=== PATIENT | female | born 1960 | race African-American/Black ===

== ENCOUNTER 2016-12-26 16:22 | Inpatient (IN) | payer OTHER ==
--- NOTE | ~2016-12-26 | CN ---
Consultation Report [facility] [address] [place]. [address] NAME: LISA ENGLISH : 58 STATUS : ADM William PAT#: [id number] AGE: 56 ADM/REG DATE : 12/27/16 MR#: [id number] REPORT SERV DATE: 12/27/16 DICTATED BY: CLIFF WALLER DATE: 12/27/16 REPORT STATUS : Draft TRANSCRIBED BY: MODCodi DATE: 12/27/16 DATE OF CONSULTATION: TIME: 11:55 a.m. ASSESSMENT: 1. Acute on chronic kidney disease in a patient with multiple risk factors for CKD include poorly controlled diabetes, hypertension recurrent, acute kidney injuries, now presenting with poorly controlled diabetes with hyperglycemia, glycosuria, and dehydration home. Plan is resuscitate with volume. 2. Diabetic control. 3. Serological workup. 4. Serum protein electrophoresis. 5. visitor services coordinator evaluation and we will obtain an ultrasound to obtain what her anatomy of her kidneys are as she has underlying chronic kidney disease. HISTORY: History is obtained from the patient. She is an unfortunate 56-year-old female, homeless with inability to afford medications, prior crack and alcohol addict, recently discharged from [facility] due to pancreatitis, unable to afford insulin on discharge and for about 5 days, she went [facility] where she was supplied with some insulin but now came in with increasing abdominal pain, nausea, vomiting, weakness, and malaise and blood pressure was initially 100/50, and now up into the 220s over 90s with volume resuscitation. She had abdominal pain, nausea, vomiting, and some diarrhea. Denies any history of difficulty in voiding. No history of hematuria or acute retention. No use of anti-inflammatories that she can mention and the patient is unaware of underlying chronic kidney disease. PAST MEDICAL HISTORY: 1. Includes a history of being homeless. 2. Inability to afford medications for diabetes and hypertension control. 3. Alcohol and cocaine addiction. 4. History of CKD. 5. Pancreatitis. 6. COPD. 7. Type 2 diabetes. SOCIAL HISTORY: A 13-cees-axai history of smoking. No alcohol or medication or street drug use at the present time and currently homeless. She has 4 sons, one in [place], one here in [place], and two in [place]. REVIEW OF SYSTEMS: As per the HPI. HOME MEDICATIONS: She is unable to afford but supposedly have included Atarax, hydrochlorothiazide 25, Neurontin, aspirin, Proventil, Levsin, Levemir, and lisinopril. Consultation Report [facility] [id number] [place]. [address] NAME: LISA ENGLISH : 58 STATUS : ADM William PAT#: [id number] AGE: 56 ADM/REG DATE : 12/27/16 MR#: [id number] REPORT SERV DATE: 12/27/16 DICTATED BY: CLIFF WALELR DATE: 12/27/16 REPORT STATUS : Draft TRANSCRIBED BY: MODCodi DATE: 12/27/16 REVIEW OF SYSTEMS: As per the HPI. PHYSICAL EXAMINATION: GENERAL: She is an obese female, awake, alert, and in no acute distress. VITAL SIGNS: Blood pressure is 200/100. HEENT: Pupils are reacting to light. She is pale but not jaundiced. Oral mucosa is moist. No pharyngitis. NECK: Supple. No thyromegaly. Trachea is central. Air entry is equal bilaterally. CHEST: Clear to auscultation. ABDOMEN: Upper abdomen obese. No hepatosplenomegaly. No tenderness, guarding, or rebound. Bowel sounds normal. EXTREMITIES: She has no peripheral edema. She has old scars on both legs and arms consistent with question of IV drug abuse. Muscle bulk and tone are reduced but no focal neurological deficits noted. No acute arthritic findings noted. NEUROLOGIC: She is awake, alert, and oriented to time, place, and person. [place] not depressed at this time. LAB AND IMAGING: Workup includes a CT scan of the abdomen and pelvis that shows exophytic cyst in the lower pole of the right kidney; small benign angiolipoma in lower pole right kidney. Bilateral areas of chronic cortical scarring are described. Old healed posterior rib fractures, left through 11th ribs are noted. Mild cardiomegaly. Sodium 134, potassium 3.5, chloride 99, CO2 of 26, BUN 42, creatinine 2.3, calcium is 8.2, lipase was 554, hemoglobin 11.3, hematocrit 32.2, white count 10.3, platelet count 259,000. Urinalysis showed trace protein, glycosuria and no hematuria or pyuria. ADDENDUM: We will add diltiazem for her blood pressure control at this time. MG/MODL Cliff Waller M.D. / [id number] CC: Vel Gutierrez Jr, MD
--- NOTE | ~2016-12-26 | DS ---
Discharge Summary [facility] [address] [facility] [place]. [address] NAME: LISA ENGLISH : 58 STATUS : DIS William PAT#: [id number] AGE: 56 ADM/REG DATE : 12/27/16 MR#: [id number] REPORT SERV DATE: 12/31/16 DICTATED BY: DATE: REPORT STATUS : Draft TRANSCRIBED BY: MODL DATE: 12/30/16 ADMISSION DATE: 12/27/2016 DISCHARGE DATE: 12/30/2016 DISCHARGE DIAGNOSES: 1. Diabetes mellitus, type 2, with diabetic ketoacidosis. 2. Abdominal pain. 3. Hypertension. 4. Acute kidney injury on chronic kidney disease II. 5. Nausea and vomiting. 6. Dehydration. 7. Chronic obstructive pulmonary disease. CONSULTATIONS: Nephrology, Dr. Waller. PROCEDURES AND IMAGIN. Chest x-ray on 12/26/2016 showed no acute cardiopulmonary process. CT of the abdomen and pelvis, without contrast, showed no acute abdominal or pelvic pathology. Diffusely, decompressed transverse, descending, and sigmoid colon with no underlying diverticulosis and no pericolonic inflammatory changes. Poorly defined peripheral infiltrates in both posterior lung bases with poorly defined atelectasis. 2. 12/30/2016, gastric emptying study showed marked gastroparesis with 95% of the activity remaining within the stomach at the end of 80 minutes. HOSPITAL COURSE: Please see H and P from 12/27/[address] Yifan Nesbitt. This is a 56-year- old black female who came to the ER with abdominal pain and high blood sugar. The patient states she has not taken her insulin for five days and had run out of test strips five days previously. The patient had also been admitted to [facility] and has been out for a week since her admission there with acute pancreatitis. The patient has had nausea and vomiting and acute kidney injury due to extreme dehydration from her high blood sugar. During her stay, the patient has had high blood sugars because the patient keeps getting food brought in by her family. The patient had stated she had no insurance, so we have attempted to place the patient on 70/30 insulin due to lack of insurance. When it was discovered today the patient is on [place] Medicaid, the patient also states she has been given some insulin from the homeless alf. So, the patient will be discharged on that Levemir from that homeless alf and then will be transitioned to Lantus with the Humulin. The patient's blood pressures had extremes up to 180s/90s and down to 135/64. The patient's hydrochlorothiazide has been added back in since the patient's acute kidney injury has resolved. The patient also no longer has nausea and vomiting and her dehydration has been resolved. The patient's COPD has been well controlled during her stay with nebulizer treatments. The patient does use nebulizer at home. PHYSICAL EXAMINATION: VITAL SIGNS: Blood pressure 135/64, temp is 98.1, O2 saturation is 95% on room air, pulse is 84, and respirations are 16. HEENT: Head is atraumatic, normocephalic. The patient does have bilateral upper lid ptosis, Discharge Summary [address] [address] NAME: LISA ENGLISH : 58 STATUS : DIS William PAT#: [id number] AGE: 56 ADM/REG DATE : 12/27/16 MR#: [id number] REPORT SERV DATE: 12/31/16 DICTATED BY: DATE: REPORT STATUS : Draft TRANSCRIBED BY: MODL DATE: 12/30/16 right greater than left. Pupils are equal, round, and reactive to light and accommodation. Sclerae are clear and nonicteric. The patient has poor dentition. NECK: Neck is supple with no palpable lymphadenopathy or thyromegaly. Neck veins are flat. CARDIAC: The patient is in a regular rhythm with no obvious murmurs, rubs, or gallops. LUNGS: Lung sounds are clear with normal respiratory effort. ABDOMEN: Soft and nontender with active bowel sounds in all four quadrants. Normal bowel habitus. No palpable organomegaly. Abdomen is obese. EXTREMITIES: The patient has no peripheral edema, clubbing, or cyanosis. DP/PT pulses are palpable bilaterally. MUSCULOSKELETAL: The patient moves all extremities x4. The patient is ambulatory without assistance. No difficulties with balance. SKIN: Warm and dry with normal color and turgor. NEURO/PSYCH: The patient is alert and oriented x4, pleasant and cooperative. Cranial nerves II through XII are grossly intact. DISCHARGE DIET: 1800 calorie, ADA diet. DISCHARGE MEDICATIONS: Aspirin 81 mg daily; gabapentin 400 mg daily; hydrochlorothiazide 25 mg daily; Levemir 40 units b.i.d. per prescription from the homeless alf and then transition to Lantus and Humulin as directed per MD; Atarax 25 mg at bedtime; Proventil two puffs every four hours as needed for short of breath; QVAR one puff twice daily; Levsin 0.125 mg four times a day as needed for abdominal pain; lisinopril 20 mg daily; erythromycin 250 mg p.o. t.i.d. x7 days. ALLERGIES: THE PATIENT IS ALLERGIC TO WELLBUTRIN FOR WHICH SHE GETS A RASH. THE PATIENT IS TO FOLLOW UP WITH HER PCP, TO WORK ON HER INSULIN WITHIN THE NEXT FIVE TO SEVEN DAYS. SHOULD THE PATIENT DEVELOP ANY MORE SEVERE ABDOMINAL PAIN OR EXTREME ELEVATION IN HER BLOOD SUGAR, THE PATIENT IS TO CALL HER PCP OR PRESENT TO THE ER. APPROXIMATELY 40 MINUTES HAS BEEN SPENT COORDINATING DISCHARGE CARE OF THIS PATIENT INCLUDING JPEN-XN-FCFA ENCOUNTER AND SUMMARIZATION OF THE DISCHARGE. SLC/MODL Edna Fong NP / [id number] CC: Vel Gutierrez Jr, MD
--- NOTE | ~2016-12-26 | HP ---
History And Physical [facility] [address] [facility] [place]. [address] NAME: LISA SANTOS : 58 STATUS : ADM William PAT#: [id number] AGE: 56 ADM/REG DATE : 12/27/16 MR#: [id number] REPORT SERV DATE: 12/27/16 DICTATED BY: LEE HERRERA DATE: 12/27/16 REPORT STATUS : Draft TRANSCRIBED BY: MODL DATE: 12/27/16 DATE OF ADMISSION: 12/27/2016 CHIEF COMPLAINT: Abdominal pain, feeling sick, high blood sugar. HISTORY OF PRESENT ILLNESS: This is a 56-year-old female, who presents to the emergency room at [facility] with the above-mentioned complaint. History is obtained from the patient, and reviewing data available on the [employer] system. I had also spoken with the ER physician about her. According to Ms. Santos, she was discharged from [facility] about a week or so ago after she was treated for acute pancreatitis there. She says she was discharged home but continued to have nausea and severe vomiting even after she came home. She also had the abdominal pain. Her blood sugars were high as she could not eat or drink, and finally she decided to come to the emergency room here. In the emergency room here, initial workup revealed she had hyperglycemia, metabolic acidosis, and acute kidney injury. When she arrived here, she was hypotensive as well. Her lactate was 6.7 today. Hospitalist Service is asked to admit her for further evaluation and treatment. At the time of my evaluation, she denied any chest pain, palpitations, or orthopnea. She had no cough, hemoptysis, night sweats, or weight loss. She denied any recent falls or loss of consciousness. She had no fevers or chills. She did have nausea and vomiting which was bilious and not associated with any blood in it. She had no hematemesis, hematochezia, or hematuria. No other history of recent travel or exposures other than those mentioned above. PAST MEDICAL HISTORY: Significant for history of essential hypertension, COPD, and diabetes mellitus type 2. SOCIAL HISTORY: She has about [id number] history of smoking. Denied alcohol use or recreational drug use. FAMILY HISTORY: Noncontributory. MEDICATIONS: At home were reviewed by me in the chart today and reordered by me. REVIEW OF SYSTEMS: As in history of present illness. All other systems were reviewed in detail and are quite unremarkable. PHYSICAL EXAMINATION: GENERAL: This is a pleasant 56-year-old, not in any acute distress. HEENT: Her head is atraumatic, normocephalic. She is alert, awake, oriented to time, place, and person. Her pupils are equal, reacting to light and accommodating. External ocular muscles are intact. Membranes are moist and pink. Sclerae nonicteric. History And Physical [address] [address] NAME: LISA SANTOS : 58 STATUS : ADM William PAT#: [id number] AGE: 56 ADM/REG DATE : 12/27/16 MR#: [id number] REPORT SERV DATE: 12/27/16 DICTATED BY: LEE HERRERA DATE: 12/27/16 REPORT STATUS : Draft TRANSCRIBED BY: KEV DATE: 12/27/16 NECK: Supple with no jugular venous distention, lymphadenopathy, or thyromegaly. LUNGS: Clear to auscultation with no wheezes, rubs, or crackles. HEART: Heart sounds were regular with no murmurs, rubs, or gallops. ABDOMEN: Soft, nontender. Bowel sounds are present. EXTREMITIES: Showed no cyanosis, clubbing, or edema. NEUROLOGIC: Grossly intact. No focal sensory or motor deficits. She was able to move all four extremities. Gait was not examined at this time. VITAL SIGNS: Her vital signs today showed a temperature of 97.7, pulse 96, respirations 23 a minute, blood pressure was 100/50, oxygen saturations were 95% on 2 L via nasal cannula. LABORATORY DATA: Reviewed on the [employer] system showed arterial blood gas with a pH of 7.40, pCO2 was 33, PO2 129, and bicarb was 20. This was on 2 L via nasal cannula. CMP showed a sodium of 131, potassium 4.3, chloride 91, CO2 of 20, BUN was 40 with a creatinine of 3.05, and the last one on 09/10/2016 was 1.09. Her blood glucose was 387 when she arrived here. Her lipase was not done today. Her lactate was 6.7. [place] [address], hemoglobin was 13.2, hematocrit 36.5, and platelet count was 330,000. Urinalysis was grossly unremarkable today. Films of the CT scan of the abdomen and pelvis were reviewed by me on the PACS today and interpreted by me. There were no acute intraabdominal or pelvic pathology according to the radiology report. Please see the report for details. A 12-lead EKG done in the emergency room was reviewed and interpreted by me. Per my interpretation, there is normal sinus rhythm with a rate of [address] changes. IMPRESSION: 1. Nausea and vomiting. 2. Abdominal pain. 3. Recent pancreatitis. 4. Hyperglycemia, possibly hyperosmolar hyperglycemic state. 5. Hypotension. 6. Acute kidney injury. 7. Metabolic acidosis. 8. Essential hypertension. 9. Chronic obstructive pulmonary disease. 10.Medication noncompliance. PLAN: We will admit Ms. Santos to the Hospitalist Service with telemetry for a 24-hour observation. She responded well to fluid challenge and volume replacement. Blood pressures had come up to 153/81. We will continue aggressive volume replacement. Follow chemistry and renal function in the morning. We will go ahead and consult Nephrology to see her as well. We will also place her on insulin infusion per protocol as well. Her hypotension has resolved as mentioned above. We will continue the fluids. Place her on bronchodilator treatments and supplemental oxygen therapy for her COPD and also unfractionated heparin for DVT prophylaxis while here. I have discussed the above plans with the patient and questions were answered. She is History And Physical [address] [address] NAME: LISA SANTOS : 58 STATUS : ADM William PAT#: [id number] AGE: 56 ADM/REG DATE : 12/27/16 MR#: [id number] REPORT SERV DATE: 12/27/16 DICTATED BY: LEE HERRERA DATE: 12/27/16 REPORT STATUS : Draft TRANSCRIBED BY: MODCodi DATE: 12/27/16 agreeable to the above recommendations. /KEV Lee Herrera M.D. / [id number] CC: Vel Gutierrez Jr, MD
[~2016-12-26 16:22] MED LIST: ADVIL PO; ALBUTEROL INH; AMITIZA8 MCG PO; BENTYL10 PO; DELTADOSE; ENULOSE PO; FERROUS SULF325 M1 PO; FOLAMIN PO; HUMALOG SC; LANTUS SC; LINZESS 290 M290 MCG PO; LISINOPRIL-HCTZ PO; METHOC750B PO; NOVOLOG SC; PEPCID40 MG OR; PRILOSEC40 MG PO; PROAIR HFA INH; PROZAC40 MG PO; RANITIDINE300 MG PO; SEROQUEL300 MG PO; TRAVATAN Z0.004 % OPH; TRAZODONE150 MG PO; TRAZODONE300 MG PO; ZESTORETIC PO; ZESTORETIC1 TA1 PO; ZESTORETIC1 TAB PO
[2016-12-26 17:17] LABS: BASOPHILS 0.2 %; BASOPHILS ABSOLUTE 0.03 10/3/uL (0.0-0.16); EOSINOPHILS 0.9 %; EOSINOPHILS ABSOLUTE 0.11 10/3/uL (0.0-0.53); ER CBC TAT 0 Hrs 05 Mins; HEMATOCRIT 36.5 % (36.0-48.0); HEMOGLOBIN 13.2 g/dL (12.0-16.0); IMMATURE GRANULOCYTES 0.3 %; IMMATURE GRANULOCYTES ABSOLUTE 0.04 10/3/uL (0.0-0.11); LYMPHOCYTES 18.8 %; LYMPHOCYTES ABSOLUTE 2.34 10/3/uL (0.67-4.30); MANUAL DIFF NO %; MEAN CORPUS HGB CONC 36.2 g/dL (32.0-36.0); MEAN CORPUSCULAR HEMOGLOB 26.9 pg (26.0-34.0); MEAN CORPUSCULAR VOLUME 74.5 fL (80-100); MEAN PLATELET VOLUME 9.5 fL (9.2-13.0); MONOCYTES 6.3 %; MONOCYTES ABSOLUTE 0.78 10/3/uL (0.21-1.20); NEUTROPHILS 73.5 %; NEUTROPHILS ABSOLUTE 9.17 10/3/uL (2.02-8.40); PLATELET COUNT 330 10/3/uL (150-400); RBC DISTRIBUTION WIDTH 13.9 % (12.0-16.0); WHITE BLOOD CELLS 12.5 10/3/uL (4.5-10.5)
[2016-12-26 17:28] LABS: ACETONE NEG
[2016-12-26 17:32] LABS: ALBUMIN 3.7 G/DL (3.5-5.0); CO2 (CARBON DIOXIDE) 20 MMOL/L (24-34); POTASSIUM, SERUM 4.3 MMOL/L (3.5-5.3); SGOT(AST) 7 U/L (5-40); SGPT(ALT) 25 U/L (5-65); TOTAL BILIRUBIN 0.3 MG/DL (0-1.2)
[2016-12-26 17:34] LABS: A/G RATIO 0.7 (0.7-1.9); ALKALINE PHOSPHATASE 206 U/L (45-117); BUN (BLOOD UREA NITROGEN) 40 MG/DL (6-23); CALCIUM, SERUM 10.6 MG/DL (8.5-10.4); CHLORIDE, SERUM 91 MMOL/L (96-112); CREATININE 3.05 MG/DL (0.55-1.02); GFR AFRICAN AMERICAN 19 ML/MIN (>=60); GFR NON AFRICAN AMERICAN 16 ML/MIN (>=60); GLOBULIN 5.6 G/DL (2.5-4.1); GLUCOSE, SERUM 387 MG/DL (60-99); SODIUM, SERUM 131 MMOL/L (135-148); TOTAL PROTEIN 9.3 G/DL (6.0-8.5)
[2016-12-26] MEDS ORDERED: QVAR80 MCG INH (17:46)
[2016-12-26] MEDS ORDERED: PROVHFA INH (17:46)
[2016-12-26] MEDS ORDERED: HYDROCHLOROT25 MG PO (17:46)
[2016-12-26] MEDS ORDERED: LEVSINTAB PO (17:47)
[2016-12-26] MEDS ORDERED: AT25 PO (17:47)
[2016-12-26 17:48] LABS: ALLENS TEST Pos; CARBOXYHEMOGLOBIN 2.4 % (0-3); DEVICE NC; HEMOBLOGIN CONTENT 13.3 G/DL (12-16); INSTRUMENT SERIAL # 8087; METHEMOGLOBIN 0.1 % (0-3); O2 CONTENT 18.2 VOL% (18-24); PCO2 (CO2 TENSION) 33 MMHG (35-45); PO2 (O2 TENSION) 129 MMHG (79-93); SAMPLE Arterial
[2016-12-26] MEDS ORDERED: ASAB PO (17:48)
[2016-12-26] MEDS ORDERED: NEUR400 PO (17:48)
[2016-12-26] MEDS ORDERED: PRIN20 PO (17:48)
[2016-12-26] MEDS ORDERED: LEVEMIR SC (17:49)
[2016-12-26 18:21] LABS: CPK 100 U/L (0-200); LACTATE 6.7 MMOL/L (0.3-2.4); TROPONIN I <0.02 NG/ML (<0.05)
[2016-12-26 18:31] LABS: WBC (NOT ORDERED) (RFLEX) 0 (0-5)
[2016-12-26 18:44] LABS: ASCORBIC ACID (UR NOT ORDER) NEG (NEG); BILIRUBIN, URINE NEGATIVE (NEG); ER URINALYSIS TAT 0 Hrs 14 Mins; KETONE, URINE TRACE MG/DL (NEG); LEUKOCYTE ESTERASE(NOT OR NEG (NEG); NITRITE (URINE) NEG (NEG)
[2016-12-26 18:49] LABS: PROCALCITONIN 0.37 ng/mL (<0.5)
[2016-12-26 22:52] LABS: SALICYLATE 2.2 MG/DL (-)
[2016-12-26 22:53] LABS: ACETAMINOPHEN LEVEL (TYLENOL) < 2.0 MCG/ML (10.0-20.0); ALCOHOL < 10 MG/DL (0)
[2016-12-26 22:57] LABS: AMPHETAMINES (NOT ORD) NEG (NEG); BARBITURATES (NOT ORDERED NEG (NEG); BENZODIAZEPINES (NOT ORD) NEG (NEG); CANNABINOIDS (THC) NEG (NEG); COCAINE (NOT ORDERED) NEG (NEG); OPIATES NEG (NEG); PHENCYCLIDINE(PCP) NEG (NEG); TRICYCLICS NEG (NEG)
[2016-12-27 04:10] LABS: BASOPHILS 0.2 %; BASOPHILS ABSOLUTE 0.02 10/3/uL (0.0-0.16); EOSINOPHILS 1.5 %; EOSINOPHILS ABSOLUTE 0.15 10/3/uL (0.0-0.53); HEMOGLOBIN 11.3 g/dL (12.0-16.0); IMMATURE GRANULOCYTES 0.4 %; IMMATURE GRANULOCYTES ABSOLUTE 0.04 10/3/uL (0.0-0.11); LYMPHOCYTES 19.6 %; LYMPHOCYTES ABSOLUTE 2.02 10/3/uL (0.67-4.30); MEAN CORPUS HGB CONC 35.1 g/dL (32.0-36.0); MEAN CORPUSCULAR HEMOGLOB 26.7 pg (26.0-34.0); MEAN CORPUSCULAR VOLUME 75.9 fL (80-100); MEAN PLATELET VOLUME 9.8 fL (9.2-13.0); MONOCYTES 7.5 %; MONOCYTES ABSOLUTE 0.77 10/3/uL (0.21-1.20); NEUTROPHILS 70.8 %; NEUTROPHILS ABSOLUTE 7.32 10/3/uL (2.02-8.40); PLATELET COUNT 259 10/3/uL (150-400); RBC DISTRIBUTION WIDTH 14.3 % (12.0-16.0); RED CELL COUNT 4.24 10/6/uL (4.0-5.6); WHITE BLOOD CELLS 10.3 10/3/uL (4.5-10.5)
[2016-12-27 04:11] LABS: HEMATOCRIT 32.2 % (36.0-48.0); MANUAL DIFF NO %
[2016-12-27 04:31] LABS: A/G RATIO 0.7 (0.7-1.9); ALBUMIN 3.1 G/DL (3.5-5.0); BUN (BLOOD UREA NITROGEN) 41 MG/DL (6-23); CHLORIDE, SERUM 97 MMOL/L (96-112); CO2 (CARBON DIOXIDE) 24 MMOL/L (24-34); GLOBULIN 4.6 G/DL (2.5-4.1); PHOSPHORUS, SERUM 3.8 MG/DL (2.5-4.5); SGPT(ALT) 35 U/L (5-65); SODIUM, SERUM 135 MMOL/L (135-148); TOTAL BILIRUBIN 0.4 MG/DL (0-1.2); TOTAL PROTEIN 7.7 G/DL (6.0-8.5)
[2016-12-27 04:34] LABS: ALKALINE PHOSPHATASE 162 U/L (45-117); CALCIUM, SERUM 8.6 MG/DL (8.5-10.4); CREATININE 2.42 MG/DL (0.55-1.02); GFR AFRICAN AMERICAN 25 ML/MIN (>=60); GFR NON AFRICAN AMERICAN 21 ML/MIN (>=60); GLUCOSE, SERUM 140 MG/DL (60-99); POTASSIUM, SERUM 3.9 MMOL/L (3.5-5.3); SGOT(AST) 212 U/L (5-40)
[2016-12-27 11:11] LABS: BUN (BLOOD UREA NITROGEN) 42 MG/DL (6-23); CALCIUM, SERUM 8.2 MG/DL (8.5-10.4); CHLORIDE, SERUM 99 MMOL/L (96-112); CO2 (CARBON DIOXIDE) 26 MMOL/L (24-34); GFR AFRICAN AMERICAN 26 ML/MIN (>=60); GFR NON AFRICAN AMERICAN 23 ML/MIN (>=60); POTASSIUM, SERUM 3.5 MMOL/L (3.5-5.3); SODIUM, SERUM 134 MMOL/L (135-148)
[2016-12-27 11:13] LABS: GLUCOSE, SERUM 224 MG/DL (60-99)
[2016-12-27 16:25] LABS: BUN (BLOOD UREA NITROGEN) 41 MG/DL (6-23); CALCIUM, SERUM 8.3 MG/DL (8.5-10.4); CHLORIDE, SERUM 100 MMOL/L (96-112); CO2 (CARBON DIOXIDE) 24 MMOL/L (24-34); CREATININE 2.22 MG/DL (0.55-1.02); GFR AFRICAN AMERICAN 28 ML/MIN (>=60); GFR NON AFRICAN AMERICAN 24 ML/MIN (>=60); GLUCOSE, SERUM 282 MG/DL (60-99); POTASSIUM, SERUM 3.8 MMOL/L (3.5-5.3); SODIUM, SERUM 136 MMOL/L (135-148)
[2016-12-27 16:26] LABS: T PROTEIN (ELECT)(NOT OR 6.8 G/DL (6.0-8.5)
[2016-12-27 22:15] LABS: BUN (BLOOD UREA NITROGEN) 39 MG/DL (6-23); CALCIUM, SERUM 8.2 MG/DL (8.5-10.4); CHLORIDE, SERUM 103 MMOL/L (96-112); CO2 (CARBON DIOXIDE) 24 MMOL/L (24-34); CREATININE 2.12 MG/DL (0.55-1.02); GFR AFRICAN AMERICAN 29 ML/MIN (>=60); GFR NON AFRICAN AMERICAN 25 ML/MIN (>=60); GLUCOSE, SERUM 276 MG/DL (60-99); POTASSIUM, SERUM 3.7 MMOL/L (3.5-5.3); SODIUM, SERUM 137 MMOL/L (135-148)
[2016-12-28 01:36] LABS: CALCIUM, SERUM 8.1 MG/DL (8.5-10.4); CHLORIDE, SERUM 105 MMOL/L (96-112); CO2 (CARBON DIOXIDE) 24 MMOL/L (24-34); CREATININE 1.84 MG/DL (0.55-1.02); GFR AFRICAN AMERICAN 35 ML/MIN (>=60); GFR NON AFRICAN AMERICAN 30 ML/MIN (>=60); POTASSIUM, SERUM 3.6 MMOL/L (3.5-5.3); SODIUM, SERUM 141 MMOL/L (135-148)
[2016-12-28 01:37] LABS: BUN (BLOOD UREA NITROGEN) 35 MG/DL (6-23); GLUCOSE, SERUM 212 MG/DL (60-99)
[2016-12-28 04:40] LABS: BASOPHILS 0.4 %; BASOPHILS ABSOLUTE 0.02 10/3/uL (0.0-0.16); EOSINOPHILS 2.9 %; EOSINOPHILS ABSOLUTE 0.16 10/3/uL (0.0-0.53); HEMATOCRIT 30.3 % (36.0-48.0); HEMOGLOBIN 10.2 g/dL (12.0-16.0); LYMPHOCYTES 21.4 %; MEAN CORPUS HGB CONC 33.7 g/dL (32.0-36.0); MEAN CORPUSCULAR HEMOGLOB 26.2 pg (26.0-34.0); MEAN CORPUSCULAR VOLUME 77.7 fL (80-100); MEAN PLATELET VOLUME 10.4 fL (9.2-13.0); MONOCYTES ABSOLUTE 0.28 10/3/uL (0.21-1.20); NEUTROPHILS 70.3 %; NEUTROPHILS ABSOLUTE 3.94 10/3/uL (2.02-8.40); RBC DISTRIBUTION WIDTH 14.3 % (12.0-16.0)
[2016-12-28 04:42] LABS: PLATELET COUNT 152 10/3/uL (150-400); WHITE BLOOD CELLS 5.6 10/3/uL (4.5-10.5)
[2016-12-28 04:43] LABS: MANUAL DIFF NO %
[2016-12-28 04:44] LABS: PROTIME (NOT ORD) 12.9 SEC (12.0-14.5)
[2016-12-28 04:59] LABS: ALBUMIN 2.7 G/DL (3.5-5.0); ALKALINE PHOSPHATASE 153 U/L (45-117); BUN (BLOOD UREA NITROGEN) 33 MG/DL (6-23); CALCIUM, SERUM 8.2 MG/DL (8.5-10.4); CHLORIDE, SERUM 106 MMOL/L (96-112); CO2 (CARBON DIOXIDE) 22 MMOL/L (24-34); CREATININE 1.74 MG/DL (0.55-1.02); GFR AFRICAN AMERICAN 37 ML/MIN (>=60); GFR NON AFRICAN AMERICAN 32 ML/MIN (>=60); GLUCOSE, SERUM 201 MG/DL (60-99); PLATELET ESTIMATE ADQ (ADEQUATE); RBC MORPHOLOGY NORM (NORMAL); SGOT(AST) 369 U/L (5-40); SGPT(ALT) 65 U/L (5-65); SODIUM, SERUM 139 MMOL/L (135-148); TOTAL BILIRUBIN 0.5 MG/DL (0-1.2); TOTAL PROTEIN 6.9 G/DL (6.0-8.5)
[2016-12-28 05:01] LABS: DIRECT BILIRUBIN < 0.1 MG/DL (0.0-0.4); INDIRECT BILIRUBIN(NOT ORDER) 0.4 MG/DL (0.1-0.9); PHOSPHORUS, SERUM 2.4 MG/DL (2.5-4.5)
[2016-12-28 06:56] LABS: ASCORBIC ACID (UR NOT ORDER) NEG (NEG); BILIRUBIN, URINE NEGATIVE (NEG); KETONE, URINE NEGATIVE (NEG); LEUKOCYTE ESTERASE(NOT OR NEG (NEG); WBC (NOT ORDERED) (RFLEX) 3 (0-5)
[2016-12-28 08:34] LABS: BUN (BLOOD UREA NITROGEN) 31 MG/DL (6-23); CALCIUM, SERUM 8.1 MG/DL (8.5-10.4); CHLORIDE, SERUM 109 MMOL/L (96-112); CO2 (CARBON DIOXIDE) 23 MMOL/L (24-34); GFR AFRICAN AMERICAN 38 ML/MIN (>=60); GFR NON AFRICAN AMERICAN 33 ML/MIN (>=60); GLUCOSE, SERUM 164 MG/DL (60-99); POTASSIUM, SERUM 3.9 MMOL/L (3.5-5.3); SODIUM, SERUM 143 MMOL/L (135-148)
[2016-12-29 06:53] LABS: BASOPHILS 0.3 %; BASOPHILS ABSOLUTE 0.02 10/3/uL (0.0-0.16); EOSINOPHILS 3.4 %; HEMATOCRIT 29.3 % (36.0-48.0); IMMATURE GRANULOCYTES 0.2 %; IMMATURE GRANULOCYTES ABSOLUTE 0.01 10/3/uL (0.0-0.11); LYMPHOCYTES ABSOLUTE 1.53 10/3/uL (0.67-4.30); MEAN CORPUS HGB CONC 34.1 g/dL (32.0-36.0); MEAN CORPUSCULAR VOLUME 79.2 fL (80-100); MEAN PLATELET VOLUME 9.5 fL (9.2-13.0); MONOCYTES 5.1 %; NEUTROPHILS ABSOLUTE 3.82 10/3/uL (2.02-8.40); RBC DISTRIBUTION WIDTH 14.3 % (12.0-16.0); WHITE BLOOD CELLS 5.9 10/3/uL (4.5-10.5)
[2016-12-29 07:00] LABS: MANUAL DIFF NO %; PLATELET COUNT 220 10/3/uL (150-400)
[2016-12-29 07:09] LABS: ALBUMIN 2.7 G/DL (3.5-5.0); CHLORIDE, SERUM 111 MMOL/L (96-112); CO2 (CARBON DIOXIDE) 21 MMOL/L (24-34); CREATININE 1.41 MG/DL (0.55-1.02); GFR AFRICAN AMERICAN 48 ML/MIN (>=60); GFR NON AFRICAN AMERICAN 41 ML/MIN (>=60); PHOSPHORUS, SERUM 1.8 MG/DL (2.5-4.5); POTASSIUM, SERUM 4.2 MMOL/L (3.5-5.3); SGOT(AST) 193 U/L (5-40); SODIUM, SERUM 140 MMOL/L (135-148)
[2016-12-29 07:12] LABS: BUN (BLOOD UREA NITROGEN) 20 MG/DL (6-23); GLUCOSE, SERUM 290 MG/DL (60-99)
[2016-12-29 10:32] LABS: BUN (BLOOD UREA NITROGEN) 17 MG/DL (6-23); CALCIUM, SERUM 8.5 MG/DL (8.5-10.4); CHLORIDE, SERUM 113 MMOL/L (96-112); CO2 (CARBON DIOXIDE) 21 MMOL/L (24-34); CREATININE 1.35 MG/DL (0.55-1.02); GFR AFRICAN AMERICAN 50 ML/MIN (>=60); GFR NON AFRICAN AMERICAN 43 ML/MIN (>=60); GLUCOSE, SERUM 243 MG/DL (60-99); POTASSIUM, SERUM 3.7 MMOL/L (3.5-5.3); SODIUM, SERUM 145 MMOL/L (135-148)
[2016-12-29 15:37] LABS: BUN (BLOOD UREA NITROGEN) 20 MG/DL (6-23); CALCIUM, SERUM 8.3 MG/DL (8.5-10.4); CHLORIDE, SERUM 110 MMOL/L (96-112); CO2 (CARBON DIOXIDE) 23 MMOL/L (24-34); CREATININE 1.41 MG/DL (0.55-1.02); GFR AFRICAN AMERICAN 48 ML/MIN (>=60); GFR NON AFRICAN AMERICAN 41 ML/MIN (>=60); GLUCOSE, SERUM 128 MG/DL (60-99); SODIUM, SERUM 143 MMOL/L (135-148)
[2016-12-29 19:30] LABS: BUN (BLOOD UREA NITROGEN) 19 MG/DL (6-23); CALCIUM, SERUM 8.5 MG/DL (8.5-10.4); CHLORIDE, SERUM 109 MMOL/L (96-112); CO2 (CARBON DIOXIDE) 22 MMOL/L (24-34); GFR AFRICAN AMERICAN 58 ML/MIN (>=60); GFR NON AFRICAN AMERICAN 50 ML/MIN (>=60); POTASSIUM, SERUM 3.9 MMOL/L (3.5-5.3); SODIUM, SERUM 142 MMOL/L (135-148)
[2016-12-29 19:35] LABS: GLUCOSE, SERUM 208 MG/DL (60-99)
[2016-12-30 10:37] LABS: HEPATITIS B CORE AB IGM NON-REACTIVE (NON-REAC); HEPATITIS C ANTIBODY NON-REACTIVE (NON-REACT)
[2016-12-30 10:38] LABS: HIV COMBO NON-REACTIVE (NON REAC)
[2016-12-30 11:58] LABS: HEPATITIS B SURFACE ANTIGEN NON-REACTIVE (NON-REACT)
[2016-12-30 12:25] LABS: HEP A ANTIBODY IGM NON-REACTIVE (NON-REACT)
[2016-12-30 12:42] LABS: A/G 0.88 RATIO (0.9-2.10); ALB RELATIVE % 46.8 % (60.0-89.0); ALBUMIN (ELECTRO) 3.18 GM/DL (3.2-5.5); ALPHA 1 (ELECTRO) 0.24 GM/DL (0.1-0.4); ALPHA 1 RELAT % (NOT ORD) 3.5 % (1.0-4.0); ALPHA 2 (ELECTRO) 0.99 GM/DL (0.5-1.10); ALPHA 2 RELAT % 14.5 % (4.5-26.0); BETA RELATIVE % 17.6 % (9.0-22.0); GAMMA RELAT % 17.6 % (6.0-22.0)
[2016-12-30] MEDS ORDERED: ERY-TAB250 MG PO (17:03)
[2016-12-30] MEDS ORDERED: LANTUS SC (17:05)
[2016-12-30] MEDS ORDERED: LEVEMIR SC (17:06)
[2016-12-30] MEDS ORDERED: HUMALOG SC (17:15)
[2017-05-01] MEDS ORDERED: *UNABLE1 (23:32)
[2017-05-02] MEDS ORDERED: LEVEMIR SC (11:02)
[2017-05-02] MEDS ORDERED: PRIN10 PO (11:02)
[2017-05-02] MEDS ORDERED: HUMALOG SC (11:02)
[2017-05-02] MEDS ORDERED: QVAR80 MCG INH (11:03)
[2017-05-02] MEDS ORDERED: NEUR400 PO (11:03)
[2017-05-02] MEDS ORDERED: PROVHFA INH (11:03)
[2017-05-02] MEDS ORDERED: MEVACOR10 MG PO (11:03)
[2017-05-02] MEDS ORDERED: LOP50 PO (11:04)
[2017-05-02] MEDS ORDERED: ANASPAZ0.125 MG PO (11:04)
[2017-05-02] MEDS ORDERED: NORV10 PO (11:04)
[2017-05-02] MEDS ORDERED: PRILOSEC40 MG PO (11:04)
[2017-05-03] MEDS ORDERED: NORV10 PO (15:07)
[2017-05-03] MEDS ORDERED: QVAR80 MCG INH (15:11)
[2017-05-03] MEDS ORDERED: PROVHFA INH (15:12)
[2017-05-03] MEDS ORDERED: PRIN10 PO (15:12)
[2017-05-03] MEDS ORDERED: MEVACOR10 MG PO (15:12)
[2017-05-03] MEDS ORDERED: NEUR400 PO (15:13)
[2017-05-03] MEDS ORDERED: LOP50 PO (15:13)
[2017-05-03] MEDS ORDERED: LEVSINTAB PO (15:14)
[2017-05-03] MEDS ORDERED: PRILOSEC40 MG PO (15:14)
[2017-05-03] MEDS ORDERED: LEVEMIR SC (15:15)
[2017-05-03] MEDS ORDERED: HUMALOG SC ×2 (15:15→15:16)
[2017-05-04] MEDS ORDERED: HALF81 PO (10:14)
[2017-05-04] MEDS ORDERED: NOVOLOG SC (10:15)
[2017-05-04] MEDS ORDERED: PRIN20 PO (10:15)
[2017-05-04] MEDS ORDERED: LOP25 PO (10:16)
[2017-05-04] MEDS ORDERED: CREON PO (10:27)
[2017-05-04] MEDS ORDERED: HABIT14 TOP (10:33)
[2017-05-04] MEDS ORDERED: LEVEMIR SC (10:33)
[2017-05-04] MEDS ORDERED: NORCO1 TA1 PO (14:29)
[2017-06-25] MEDS ORDERED: LEVEMFLXPN SC (16:41)
[2017-06-25] MEDS ORDERED: LEVEMIR SC (16:42)
[2017-06-25] MEDS ORDERED: HUMALOG SC (16:43)
[2017-06-25] MEDS ORDERED: Z300 PO (16:43)
[2017-06-25] MEDS ORDERED: PRILOSEC40 MG PO (16:45)
[2017-06-25] MEDS ORDERED: CREON PO (16:46)
[2017-06-25] MEDS ORDERED: LOP25 PO (16:46)
[2017-06-25] MEDS ORDERED: PRIN20 PO (16:46)
[2017-06-25] MEDS ORDERED: NEUR400 PO (16:47)
[2017-06-25] MEDS ORDERED: PROVHFA INH (16:47)
[2017-06-25] MEDS ORDERED: QVAR80 MCG INH (16:48)
[2017-06-25] MEDS ORDERED: ASAB PO (16:48)
[2017-06-25] MEDS ORDERED: VITAMIN D PO (16:50)
[2017-06-25] MEDS ORDERED: MAXIMUM D3 PO (16:50)
== END 2016-12-30 18:14 | disposition home or self-care (01) | DRG 682 ==
LOC: ER 16:22 → CDU1 12-27 00:25 → CDU2 12-27 00:53 → 1SO 12-28 10:52
PROVIDERS: Emergency Medicine; Internal Medicine; Internal Medicine Nephrology; Neurological Surgery
PROC: 06HM33Z Insertion of Infusion Device into Right Femoral Vein, Percutaneous Approach (ICD-10-PCS; principal; 2016-12-27)
DX: N17.9 Acute kidney failure, unspecified (principal); E13.10 Other specified diabetes mellitus with ketoacidosis without coma; E87.2 Acidosis; Z68.42 Body mass index [BMI] 45.0-49.9, adult; E11.22 Type 2 diabetes mellitus with diabetic chronic kidney disease; J44.9 Chronic obstructive pulmonary disease, unspecified; I12.9 Hypertensive chronic kidney disease with stage 1 through stage 4 chronic kidney disease, or unspecified chronic kidney disease; N18.2 Chronic kidney disease, stage 2 (mild); E66.01 Morbid (severe) obesity due to excess calories; F10.21 Alcohol dependence, in remission; F14.21 Cocaine dependence, in remission; Z79.4 Long term (current) use of insulin; Z91.14 Patient's other noncompliance with medication regimen; F17.210 Nicotine dependence, cigarettes, uncomplicated; Z88.8 Allergy status to other drugs, medicaments and biological substances; Z59.0 Homelessness
CPT/HCPCS: 36600; 71010; 74176; 78264; 80048; 80053; 80069; 80074; 80076; 80305; 80307; 81001; 82009; 82150; 82550; 82805; 82962; 83605; 83690; 83735; 84100; 84145; 84155; 84165; 84450; 84484; 85025; 85610; 86592; 87040; 87070; 87389; 93005; 94640; 96365; 96366; 96375; 96523; 99291; A9270-GY; A9541; G0463; J0360; J1170; J2405; J3370

== ENCOUNTER 2017-02-04 19:50 | Emergency (ER) | payer BC ==
[2017-02-04 16:38] LABS: BASOPHILS 0.2 %; BASOPHILS ABSOLUTE 0.02 10/3/uL (0.0-0.16); EOSINOPHILS 2.9 %; EOSINOPHILS ABSOLUTE 0.23 10/3/uL (0.0-0.53); HEMATOCRIT 30.4 % (36.0-48.0); HEMOGLOBIN 10.5 g/dL (12.0-16.0); IMMATURE GRANULOCYTES 0.4 %; IMMATURE GRANULOCYTES ABSOLUTE 0.03 10/3/uL (0.0-0.11); LYMPHOCYTES 35.3 %; LYMPHOCYTES ABSOLUTE 2.84 10/3/uL (0.67-4.30); MEAN CORPUS HGB CONC 34.5 g/dL (32.0-36.0); MEAN CORPUSCULAR HEMOGLOB 26.9 pg (26.0-34.0); MEAN CORPUSCULAR VOLUME 77.7 fL (80-100); MONOCYTES 3.6 %; MONOCYTES ABSOLUTE 0.29 10/3/uL (0.21-1.20); NEUTROPHILS 57.6 %; NEUTROPHILS ABSOLUTE 4.64 10/3/uL (2.02-8.40); PLATELET COUNT 267 10/3/uL (150-400); RBC DISTRIBUTION WIDTH 13.8 % (12.0-16.0); RED CELL COUNT 3.91 10/6/uL (4.0-5.6); WHITE BLOOD CELLS 8.1 10/3/uL (4.5-10.5)
[2017-02-04 16:41] LABS: MANUAL DIFF NO %
[2017-02-04 16:52] LABS: CALCIUM, SERUM 9.1 MG/DL (8.5-10.4); CO2 (CARBON DIOXIDE) 22 MMOL/L (24-34); POTASSIUM, SERUM 3.7 MMOL/L (3.5-5.3); SGOT(AST) 5 U/L (5-40); SGPT(ALT) 17 U/L (5-65); TOTAL BILIRUBIN 0.2 MG/DL (0-1.2); TOTAL PROTEIN 7.1 G/DL (6.0-8.5)
[2017-02-04 16:58] LABS: A/G RATIO 0.9 (0.7-1.9); ALBUMIN 3.3 G/DL (3.5-5.0); ALKALINE PHOSPHATASE 191 U/L (45-117); BUN (BLOOD UREA NITROGEN) 26 MG/DL (6-23); CHLORIDE, SERUM 97 MMOL/L (96-112); CREATININE 1.89 MG/DL (0.55-1.02); GFR AFRICAN AMERICAN 34 ML/MIN (>=60); GFR NON AFRICAN AMERICAN 29 ML/MIN (>=60); GLOBULIN 3.8 G/DL (2.5-4.1); GLUCOSE, SERUM 474 MG/DL (60-99); SODIUM, SERUM 132 MMOL/L (135-148)
[~2017-02-04 19:50] MED LIST changes: +ASAB PO; +AT25 PO; +ERY-TAB250 MG PO; +HYDROCHLOROT25 MG PO; +LEVEMIR SC; +LEVSINTAB PO; +NEUR400 PO; +PRIN20 PO; +PROVHFA INH; +QVAR80 MCG INH
[2017-02-04 20:15] LABS: WBC (NOT ORDERED) (RFLEX) 0 (0-5)
[2017-02-04 20:25] LABS: ASCORBIC ACID (UR NOT ORDER) NEG (NEG); BILIRUBIN, URINE NEGATIVE (NEG); ER URINALYSIS TAT 0 Hrs 13 Mins; KETONE, URINE NEGATIVE (NEG); LEUKOCYTE ESTERASE(NOT OR NEG (NEG); NITRITE (URINE) NEG (NEG)
[2017-05-01] MEDS ORDERED: *UNABLE1 (23:32)
[2017-05-02] MEDS ORDERED: HUMALOG SC (11:02)
[2017-05-02] MEDS ORDERED: PRIN10 PO (11:02)
[2017-05-02] MEDS ORDERED: LEVEMIR SC (11:02)
[2017-05-02] MEDS ORDERED: NEUR400 PO (11:03)
[2017-05-02] MEDS ORDERED: QVAR80 MCG INH (11:03)
[2017-05-02] MEDS ORDERED: PROVHFA INH (11:03)
[2017-05-02] MEDS ORDERED: MEVACOR10 MG PO (11:03)
[2017-05-02] MEDS ORDERED: LOP50 PO (11:04)
[2017-05-02] MEDS ORDERED: ANASPAZ0.125 MG PO (11:04)
[2017-05-02] MEDS ORDERED: PRILOSEC40 MG PO (11:04)
[2017-05-02] MEDS ORDERED: NORV10 PO (11:04)
[2017-05-03] MEDS ORDERED: NORV10 PO (15:07)
[2017-05-03] MEDS ORDERED: QVAR80 MCG INH (15:11)
[2017-05-03] MEDS ORDERED: MEVACOR10 MG PO (15:12)
[2017-05-03] MEDS ORDERED: PRIN10 PO (15:12)
[2017-05-03] MEDS ORDERED: PROVHFA INH (15:12)
[2017-05-03] MEDS ORDERED: LOP50 PO (15:13)
[2017-05-03] MEDS ORDERED: NEUR400 PO (15:13)
[2017-05-03] MEDS ORDERED: PRILOSEC40 MG PO (15:14)
[2017-05-03] MEDS ORDERED: LEVSINTAB PO (15:14)
[2017-05-03] MEDS ORDERED: HUMALOG SC ×2 (15:15→15:16)
[2017-05-03] MEDS ORDERED: LEVEMIR SC (15:15)
[2017-05-04] MEDS ORDERED: HALF81 PO (10:14)
[2017-05-04] MEDS ORDERED: NOVOLOG SC (10:15)
[2017-05-04] MEDS ORDERED: PRIN20 PO (10:15)
[2017-05-04] MEDS ORDERED: LOP25 PO (10:16)
[2017-05-04] MEDS ORDERED: CREON PO (10:27)
[2017-05-04] MEDS ORDERED: LEVEMIR SC (10:33)
[2017-05-04] MEDS ORDERED: HABIT14 TOP (10:33)
[2017-05-04] MEDS ORDERED: NORCO1 TA1 PO (14:29)
[2017-06-25] MEDS ORDERED: LEVEMFLXPN SC (16:41)
[2017-06-25] MEDS ORDERED: LEVEMIR SC (16:42)
[2017-06-25] MEDS ORDERED: Z300 PO (16:43)
[2017-06-25] MEDS ORDERED: HUMALOG SC (16:43)
[2017-06-25] MEDS ORDERED: PRILOSEC40 MG PO (16:45)
[2017-06-25] MEDS ORDERED: PRIN20 PO (16:46)
[2017-06-25] MEDS ORDERED: LOP25 PO (16:46)
[2017-06-25] MEDS ORDERED: CREON PO (16:46)
[2017-06-25] MEDS ORDERED: NEUR400 PO (16:47)
[2017-06-25] MEDS ORDERED: PROVHFA INH (16:47)
[2017-06-25] MEDS ORDERED: QVAR80 MCG INH (16:48)
[2017-06-25] MEDS ORDERED: ASAB PO (16:48)
[2017-06-25] MEDS ORDERED: VITAMIN D PO (16:50)
[2017-06-25] MEDS ORDERED: MAXIMUM D3 PO (16:50)
== END 2017-02-04 21:11 | disposition home or self-care (01) ==
LOC: ER 19:50
PROVIDERS: Emergency Medicine
DX: E86.0 Dehydration (principal); I10 Essential (primary) hypertension; J45.909 Unspecified asthma, uncomplicated; F17.200 Nicotine dependence, unspecified, uncomplicated; R73.9 Hyperglycemia, unspecified; Z86.73 Personal history of transient ischemic attack (TIA), and cerebral infarction without residual deficits; Z88.8 Allergy status to other drugs, medicaments and biological substances; Z79.899 Other long term (current) drug therapy; Z79.82 Long term (current) use of aspirin
CPT/HCPCS: 80053; 81001; 82962; 83690; 85025; 93005; 99285; A9270-GY

== ENCOUNTER 2017-02-26 11:10 | Inpatient (IN) | payer BC ==
--- NOTE | ~2017-02-26 | HP ---
History And Physical [facility] [address] [place]. [address] NAME: LISA ENGLISH : 58 STATUS : ADM William PAT#: [id number] AGE: 56 ADM/REG DATE : 02/26/17 MR#: [id number] REPORT SERV DATE: 02/27/17 DICTATED BY: BETTY MARTINEZ DATE: 02/26/17 REPORT STATUS : Draft TRANSCRIBED BY: MODL DATE: 02/26/17 DATE OF ADMISSION: 02/26/2017 CHIEF COMPLAINT: Elevated blood sugars. HISTORY OF PRESENT ILLNESS: The patient is a 56-year-old female with past medical history of COPD, hypertension, diabetes type 2 uncontrolled, and pancreatitis, who comes in after going to clinic and noted to have blood sugars of 600 at that time. The patient was referred to emergency room for further evaluation and optimization of blood sugars. Additional workup showed the patient having notable abdominal discomfort consistent with having pancreatitis symptoms. Symptoms are constant, moderate severity, generalized with occasional spasming. The patient does still have appetite in which she did eat fried chicken. Symptoms are not radiating but is associated with nausea, vomiting. Does have abnormal irritation in urine, vaginal area, almost yeast-like that has been persistent. The patient reports that she still had issues with obtaining medications due to her status. She is currently now living with her family, does not have any shortness of breath, chills, fever, or diarrhea. There is nothing worsening or relieving, symptoms still currently present. REVIEW OF SYSTEMS: For additional review of systems, GENERAL: No fevers or chills. EYES: Does have chronic visual decreased acuity in the right eye but no acute changes. ENT: No sore throat or congestion. NEUROLOGIC: No headache or confusion. SKIN: Does have change in vaginal area with irritation but no rashes. RESPIRATORY: No shortness of breath or cough. CV: No chest pain or palpitations. GI: Positive for nausea and vomiting. No diarrhea or abdominal pain. : Does have mild irritation. No urgency. MUSCULOSKELETAL: No myalgias or arthralgias except chronic back pain. ENDOCRINE: No fatigue but does have elevated blood sugar. HEMATOLOGIC: No bleeding or bruising. IMMUNOLOGIC: No rhinorrhea. PSYCHIATRIC: No anxiety or confusion. PAST MEDICAL HISTORY: Hypertension, COPD, diabetes type 2, and pancreatitis. SOCIAL HISTORY: Twenty-five pack year smoking. No alcohol or illicits currently per prior clinic reports, has had history of cocaine. FAMILY HISTORY: Noted for hypertension, diabetes. SURGICAL HISTORY: Hemorrhoids with prolapsed bleeding. ALLERGIES: BUPROPION. History And Physical [address] [place]. [address] NAME: LISA ENGLISH : 58 STATUS : ADM William PAT#: [id number] AGE: 56 ADM/REG DATE : 02/26/17 MR#: [id number] REPORT SERV DATE: 02/27/17 DICTATED BY: BETTY MARTINEZ DATE: 02/26/17 REPORT STATUS : Draft TRANSCRIBED BY: KEV DATE: 02/26/17 MED LIST: Still pending but prior discharge med list did note for hydrochlorothiazide and BUCK inhibitor, was to be on Levemir, but the patient is not able to afford all medications. PHYSICAL EXAMINATION: VITAL SIGNS: The patient's blood pressure initially 92/55, temperature 98.3, pulse 80, respirations 20, and O2 sats 94% on room air. GENERAL: Smiling, no acute distress. Calm, pleasant. HEAD: Normocephalic, atraumatic. EYES: No scleral icterus. EOMI. ENT: Dry mucous membranes. Tongue midline. RESPIRATORY: Clear to auscultation. No wheezes. CV: Regular rate. No rubs. GI: Mild tenderness to palpation, but none in specific area. Does have large central obesity. : Deferred. MUSCULOSKELETAL: Moves all extremities x4. SKIN: Warm and dry. LYMPH: No cervical or supraclavicular lymphadenopathy. HEMATOLOGIC: No bleeding or bruising. NEUROLOGIC: Alert and oriented. Moves all extremities. Mild decreased sensation in the lower extremities from neuropathy. PSYCHIATRIC: Calm, pleasant, attentive to education. LABS: Initial blood sugar 456, currently 362. Sodium 134, potassium 5.2, BUN and creatinine 28 and 2.19, bicarb 23, glucose noted on BMP 378. LFTs within normal limits. Alkaline phosphatase elevated at 198, lipase 2973. Urinalysis, negative leukocyte esterase and nitrites, trace of ketone, portable chest negative. CBC: WBC 9.4, H and H 11.2 and 32, and platelets of 263. EKG normal sinus rhythm, rate 80. QTc 429, unclear questionable septal changes. ASSESSMENT AND PLAN: 1. Mild acute pancreatitis. 2. Hyperglycemia, insulin-dependent diabetes. 3. CKD stage 2 with acute kidney injury. 4. Hypertension. 5. Chronic obstructive pulmonary disease. 6. Questionable living situation, homelessness history per records. 7. Yeast infection. 8. Questionable septal changes on EKG. PLAN: 1. For mild acute pancreatitis, IV fluids, supportive, educated about diet. We will have nutrition education again as the patient was eating multiple fried foods, does have history of chronic pancreatitis, requiring much IV in the form of IV pain medications. We will have supportive pain medication, aggressive IV fluids and supportive treatment. 2. Hyperglycemia with diabetes, insulin dependent, has had difficulty obtaining History And Physical [address] [address] NAME: LISA ENGLISH : 58 STATUS : ADM William PAT#: [id number] AGE: 56 ADM/REG DATE : 02/26/17 MR#: [id number] REPORT SERV DATE: 02/27/17 DICTATED BY: BETTY MARTINEZ DATE: 02/26/17 REPORT STATUS : Draft TRANSCRIBED BY: MODCodi DATE: 02/26/17 medications. We will have Case Management evaluate to assist for medications to prevent further complications. The patient does appear to have complications with eyes, kidney, and peripheral neuropathy. 3. Acute kidney injury with CKD. IV fluids. Check lytes, depleted. Stop BUCK inhibitor and hydrochlorothiazide although it is unclear which of these medications the patient is still taking. Reassess in a.m. 4. Hypertension, borderline low. Hold any medications. 5. COPD. O2, DuoNeb. Restart QVAR once confirmed with pharmacy. Not in acute exacerbation. 6. Question of homeless, currently now living with family. 7. Yeast infection. Diflucan and control blood sugars. 8. Questionable septal changes. Optimize electrolytes. Treat above pancreatitis, hyperglycemia. Repeat EKG in the a.m. 9. Disposition pending clinical improvement as above. DDN/MODL Betty Martinez MD / [id number] CC: Betty Martinez MD
--- NOTE | ~2017-02-26 | IDS ---
Interim Discharge Summary [facility] [address] [place]. [address] NAME: LISA ENGLISH : 58 STATUS : ADM IN PAT#: [id number] AGE: 56 ADM/REG DATE : 02/26/17 MR#: [id number] REPORT SERV DATE: 03/03/17 DICTATED BY: ELIEL ROGERS DATE: 03/03/17 REPORT STATUS : Draft TRANSCRIBED BY: MODL DATE: 03/03/17 ADMISSION DATE: 02/26/2017 DISCHARGE DATE: CURRENT INTERIM DIAGNOSES: Include, 1. Acute pancreatitis that has resolved. Lipase now 101. 2. Diabetes type 2, uncontrolled. Hemoglobin A1c of 11.4 with hyperglycemia and hypoglycemia. 3. Acute kidney injury on chronic kidney disease, stage 2. Most recent creatinine 1.12. 4. Hypertension. 5. Morbid obesity. 6. Gastroparesis. 7. Urinary tract infection. Cultures growing E coli with pyuria and urinary frequency. HISTORY OF PRESENT ILLNESS: This is a pleasant, but unfortunate, 56-year-old female who presented with very elevated blood sugars. Please see the initial H and P of Dr. Levar Martinez. This patient was admitted to the Hospitalist Service for further evaluation and treatment. Lab work was ordered and followed. She was given aggressive IV hydration, pain medicines, and aggressive blood sugar control. She was found to have some worsening acute kidney injury and initially her hydrochlorothiazide and BUCK inhibitor were placed on hold as well. PROCEDURES AND IMAGING DURING THIS ADMISSION: Include a CT of the abdomen and pelvis that showed edema involving the entirety of the pancreas consistent with acute pancreatitis, mild localized ileus. CONTINUATION OF THE HOSPITAL COURSE: The patient was initially seen by Dr. Galindo beginning on 02/27/2017 where she was having some diffuse abdominal pain along with her hyperglycemia and the above-described CT scan was performed showing the described pancreatitis. Her bowels were rested while she was given IV hydration, and her kidney function began to improve with this, with her creatinine falling from 2.19 to 1.56. Her lipase was found to be elevated on admission, but it began to fall as well. She began to have some resolution of her symptoms and abdominal pain began to slowly improve, but her blood sugars were still quite elevated as there were numerous adjustments to her overall insulin regimen. In further discussion with the patient, she revealed that she had actually run out of her medicines and had been out of her insulin for several days. She is in a difficult financial situation and she is currently living with her son, but her insurance allows her to have only five prescriptions a month. With the improvement in her overall kidney function, medications for blood pressure were able to be slowly resumed. Her insulin has been increased as she has been now able to tolerate diet again with her abdominal pain resolving and her lipase falling all the way to 101, but over the past 24 hours, she has had some very wild swings in her blood sugars becoming very hypoglycemic and then hyperglycemic, so we will continue to follow her blood sugars every two hours today with the hopes that she will not have any more of these significant swings in her blood sugar. I began to transition her to all p.o. medicines and slowly resuming her prior home regimen of blood pressure control. She will complete two more days of antibiotic therapy. We will follow up lab work in the Interim Discharge Summary [address] [place]. [address] NAME: LISA ENGLISH : 58 STATUS : ADM IN PAT#: [id number] AGE: 56 ADM/REG DATE : 02/26/17 MR#: [id number] REPORT SERV DATE: 03/03/17 DICTATED BY: ELIEL ROGERS DATE: 03/03/17 REPORT STATUS : Draft TRANSCRIBED BY: KEV DATE: 03/03/17 morning with a BMP to further assess her for kidney function. I have instructed her to mobilize and ambulate in the hallway today, and hopefully, the patient can be discharged home soon with outpatient followup with her primary care provider, Soumya Tan at the [facility]. I have updated the patient at length at bedside. She is in agreement with this plan going forward. ANDRE/KEV Eliel Rogers NP / [id number] CC: Evaristo Santos, N.P.
--- NOTE | ~2017-02-26 | DS ---
Discharge Summary [facility] [address] [place]. [address] NAME: LISA ENGLISH : 58 STATUS : ADM IN PAT#: [id number] AGE: 56 ADM/REG DATE : 02/26/17 MR#: [id number] REPORT SERV DATE: 03/05/17 DICTATED BY: TIO FRAUSTO DATE: 03/05/17 REPORT STATUS : Draft TRANSCRIBED BY: MODL DATE: 03/05/17 ADMISSION DATE: 02/26/2017 DISCHARGE DATE: 03/05/2017 FINAL HOSPITAL DIAGNOSES: 1. Acute pancreatitis, resolved. 2. Diabetes mellitus, poor control. 3. Acute kidney injury on chronic kidney disease, improved. 4. Hypertension, improved. 5. Obesity. 6. Urinary tract infection, treated. CONSULTATIONS AND PROCEDURES: As listed in interim summary. CURRENT PHYSICAL FINDINGS AND HISTORY OF PRESENT ILLNESS: Please see initial dictated H and P by Dr. Martinez on 02/27/2017 and interim summary by Eliel Lockett on 03/03/2017. I assumed the patient's care on 03/04/2017 and will dictate to that point. The patient had resolved on 03/04/2017 from her pancreatitis. She was tolerating normal p.o., having no nausea, vomiting, or abdominal pain. Her blood sugar and blood pressure while improved were still suboptimal control. Her insulin was further treated and her antihypertensives were further treated. On evaluation on 03/05/2017, the patient was averaging less than 250 on her sugars and marked improvement from 300+ and her blood pressure had responded to the addition of a beta rachael and calcium channel rachael after discontinuing her thiazide diuretic. She had no other complications. Understood her current recommendations on her blood pressure and diabetes and was felt stable for discharge, to follow up with her PCP. DISPOSITION: She is discharged home. DISCHARGE INSTRUCTIONS: Rx is written for lancets and glucometer strips; Norvasc 10, #30, one per day with one refill; NovoLog 25 units plus level-3 sliding scale averaging 10 units with meals with one refill; Lopressor 50 b.i.d. with one refill; Macrobid 100 b.i.d., to finish out a final course of antibiotic; Levemir 70 units subcu b.i.d. She was given general instructions to monitor her sugars closely. She will actually be having a family member move in with her to assist her. She is going to monitor her sugars closely. She was given recommendations on reasonable adjustments of her insulin and the need for frequent checks on the much higher doses that she is currently on. She voiced understanding. Other medications will be aspirin 81, Neurontin 400 at bedtime, Levsin 0.125 four times daily, Bentyl 20 b.i.d., Prinivil 10 one per day, Mevacor 10 one per day, Prilosec 40 one per day, Proventil inhaler two puffs q.4 hours, and QVAR one spray twice daily. RASHIDF/KEV Tio Frausto M.D. Discharge Summary [address] [address] NAME: LISA ENGLISH : 58 STATUS : ADM IN PAT#: [id number] AGE: 56 ADM/REG DATE : 02/26/17 MR#: [id number] REPORT SERV DATE: 03/05/17 DICTATED BY: TIO FRAUSTO DATE: 03/05/17 REPORT STATUS : Draft TRANSCRIBED BY: KEV DATE: 03/05/17 / [id number] CC: Evaristo Little N.P.
[2017-02-26 11:46] LABS: BASOPHILS 0.1 %; BASOPHILS ABSOLUTE 0.01 10/3/uL (0.0-0.16); EOSINOPHILS 1.7 %; EOSINOPHILS ABSOLUTE 0.16 10/3/uL (0.0-0.53); ER CBC TAT 0 Hrs 03 Mins; HEMOGLOBIN 11.2 g/dL (12.0-16.0); IMMATURE GRANULOCYTES 0.5 %; IMMATURE GRANULOCYTES ABSOLUTE 0.05 10/3/uL (0.0-0.11); LYMPHOCYTES ABSOLUTE 1.13 10/3/uL (0.67-4.30); MEAN CORPUSCULAR HEMOGLOB 27.3 pg (26.0-34.0); MEAN PLATELET VOLUME 9.6 fL (9.2-13.0); MONOCYTES ABSOLUTE 0.38 10/3/uL (0.21-1.20); NEUTROPHILS 81.7 %; NEUTROPHILS ABSOLUTE 7.66 10/3/uL (2.02-8.40); PLATELET COUNT 263 10/3/uL (150-400); WHITE BLOOD CELLS 9.4 10/3/uL (4.5-10.5)
[2017-02-26 11:47] LABS: MANUAL DIFF NO %
[2017-02-26 12:12] LABS: ASCORBIC ACID (UR NOT ORDER) NEG (NEG); BILIRUBIN, URINE NEGATIVE (NEG); ER URINALYSIS TAT 0 Hrs 12 Mins; KETONE, URINE TRACE MG/DL (NEG); LEUKOCYTE ESTERASE(NOT OR NEG (NEG); NITRITE (URINE) NEG (NEG); WBC (NOT ORDERED) (RFLEX) < 1 (0-5)
[2017-02-26 13:46] LABS: ALBUMIN 3.4 G/DL (3.5-5.0); ALKALINE PHOSPHATASE 198 U/L (45-117); CALCIUM, SERUM 9.5 MG/DL (8.5-10.4); CHLORIDE, SERUM 100 MMOL/L (96-112); CO2 (CARBON DIOXIDE) 23 MMOL/L (24-34); CREATININE 2.19 MG/DL (0.55-1.02); GFR AFRICAN AMERICAN 28 ML/MIN (>=60); GFR NON AFRICAN AMERICAN 24 ML/MIN (>=60); SGOT(AST) 11 U/L (5-40); SGPT(ALT) 35 U/L (5-65); SODIUM, SERUM 134 MMOL/L (135-148); TOTAL BILIRUBIN 0.3 MG/DL (0-1.2); TOTAL PROTEIN 8.1 G/DL (6.0-8.5)
[2017-02-26 13:50] LABS: BUN (BLOOD UREA NITROGEN) 38 MG/DL (6-23); POTASSIUM, SERUM 5.2 MMOL/L (3.5-5.3)
[2017-02-26 13:51] LABS: A/G RATIO 0.7 (0.7-1.9); DIRECT BILIRUBIN < 0.1 MG/DL (0.0-0.4); GLOBULIN 4.7 G/DL (2.5-4.1); GLUCOSE, SERUM 378 MG/DL (60-99); INDIRECT BILIRUBIN(NOT ORDER) 0.2 MG/DL (0.1-0.9)
[2017-02-26] MEDS ORDERED: PRILOSEC40 MG PO (15:19)
[2017-02-26] MEDS ORDERED: MEVACOR10 MG PO (15:20)
[2017-02-26] MEDS ORDERED: BENTYL20 PO (15:21)
[2017-02-26 21:02] LABS: CREATININE, URINE 30.5 MG/DL
[2017-02-27 01:45] LABS: ASCORBIC ACID (UR NOT ORDER) NEG (NEG); BILIRUBIN, URINE NEGATIVE (NEG); KETONE, URINE NEGATIVE (NEG); LEUKOCYTE ESTERASE(NOT OR LARGE (NEG); WBC (NOT ORDERED) (RFLEX) 16 (0-5)
[2017-02-27 05:35] LABS: BUN (BLOOD UREA NITROGEN) 35 MG/DL (6-23); CALCIUM, SERUM 9.3 MG/DL (8.5-10.4); CHLORIDE, SERUM 104 MMOL/L (96-112); CO2 (CARBON DIOXIDE) 24 MMOL/L (24-34); GFR AFRICAN AMERICAN 42 ML/MIN (>=60); GFR NON AFRICAN AMERICAN 37 ML/MIN (>=60); GLUCOSE, SERUM 317 MG/DL (60-99); POTASSIUM, SERUM 4.5 MMOL/L (3.5-5.3); SODIUM, SERUM 138 MMOL/L (135-148)
[2017-02-27 05:44] LABS: CREATININE 1.56 MG/DL (0.55-1.02)
[2017-02-27 07:08] LABS: BASOPHILS 0.1 %; BASOPHILS ABSOLUTE 0.01 10/3/uL (0.0-0.16); EOSINOPHILS 3.1 %; EOSINOPHILS ABSOLUTE 0.22 10/3/uL (0.0-0.53); HEMATOCRIT 35.1 % (36.0-48.0); HEMOGLOBIN 11.7 g/dL (12.0-16.0); IMMATURE GRANULOCYTES 0.3 %; IMMATURE GRANULOCYTES ABSOLUTE 0.02 10/3/uL (0.0-0.11); LYMPHOCYTES 26.4 %; LYMPHOCYTES ABSOLUTE 1.85 10/3/uL (0.67-4.30); MEAN CORPUS HGB CONC 33.3 g/dL (32.0-36.0); MEAN CORPUSCULAR HEMOGLOB 26.6 pg (26.0-34.0); MEAN CORPUSCULAR VOLUME 79.8 fL (80-100); MEAN PLATELET VOLUME 10.1 fL (9.2-13.0); MONOCYTES 5.7 %; NEUTROPHILS 64.4 %; PLATELET COUNT 242 10/3/uL (150-400)
[2017-02-27 07:13] LABS: MANUAL DIFF NO %
[2017-02-27 13:40] LABS: CHOL/HDL RATIO(NOT ORDER) 3.7 (0-5); CHOLESTEROL 150 MG/DL (< 200); HDL CHOLESTEROL 41 MG/DL (> 49); LDL CHOLESTEROL 43 MG/DL (< 130); NON-HDL CHOLESTEROL 109 MG/DL (< 160)
[2017-02-27 13:41] LABS: TRIGLYCERIDE 330 MG/DL (< 150)
[2017-02-28 04:33] LABS: BASOPHILS 0.2 %; BASOPHILS ABSOLUTE 0.01 10/3/uL (0.0-0.16); EOSINOPHILS 3.9 %; EOSINOPHILS ABSOLUTE 0.22 10/3/uL (0.0-0.53); HEMATOCRIT 32.4 % (36.0-48.0); HEMOGLOBIN 10.9 g/dL (12.0-16.0); IMMATURE GRANULOCYTES 0.2 %; IMMATURE GRANULOCYTES ABSOLUTE 0.01 10/3/uL (0.0-0.11); LYMPHOCYTES 33.4 %; LYMPHOCYTES ABSOLUTE 1.89 10/3/uL (0.67-4.30); MEAN CORPUS HGB CONC 33.6 g/dL (32.0-36.0); MEAN CORPUSCULAR VOLUME 80.2 fL (80-100); MEAN PLATELET VOLUME 9.5 fL (9.2-13.0); MONOCYTES 5.3 %; NEUTROPHILS ABSOLUTE 3.23 10/3/uL (2.02-8.40); PLATELET COUNT 228 10/3/uL (150-400); RBC DISTRIBUTION WIDTH 13.8 % (12.0-16.0); RED CELL COUNT 4.04 10/6/uL (4.0-5.6); WHITE BLOOD CELLS 5.7 10/3/uL (4.5-10.5)
[2017-02-28 04:35] LABS: MANUAL DIFF NO %
[2017-02-28 04:51] LABS: A/G RATIO 0.6 (0.7-1.9); ALBUMIN 2.9 G/DL (3.5-5.0); CHLORIDE, SERUM 104 MMOL/L (96-112); CO2 (CARBON DIOXIDE) 28 MMOL/L (24-34); GLOBULIN 4.6 G/DL (2.5-4.1); SGOT(AST) 11 U/L (5-40); SGPT(ALT) 24 U/L (5-65); SODIUM, SERUM 138 MMOL/L (135-148); TOTAL BILIRUBIN 0.3 MG/DL (0-1.2); TOTAL PROTEIN 7.5 G/DL (6.0-8.5)
[2017-02-28 04:56] LABS: ALKALINE PHOSPHATASE 177 U/L (45-117); BUN (BLOOD UREA NITROGEN) 16 MG/DL (6-23); GFR AFRICAN AMERICAN 72 ML/MIN (>=60); GFR NON AFRICAN AMERICAN 62 ML/MIN (>=60); GLUCOSE, SERUM 221 MG/DL (60-99)
[2017-02-28 16:34] LABS: AMPHETAMINES (NOT ORD) NEG (NEG); BARBITURATES (NOT ORDERED NEG (NEG); BENZODIAZEPINES (NOT ORD) NEG (NEG); CANNABINOIDS (THC) POS (NEG); COCAINE (NOT ORDERED) NEG (NEG); OPIATES POS (NEG); PHENCYCLIDINE(PCP) NEG (NEG); TRICYCLICS NEG (NEG)
[2017-03-02 10:39] LABS: ULTRASENSITIVE TSH 1.34 MCIU/ML (0.358-3.740)
[2017-03-03 06:18] LABS: BUN (BLOOD UREA NITROGEN) 13 MG/DL (6-23); CALCIUM, SERUM 8.7 MG/DL (8.5-10.4); CHLORIDE, SERUM 106 MMOL/L (96-112); CO2 (CARBON DIOXIDE) 24 MMOL/L (24-34); CREATININE 1.12 MG/DL (0.55-1.02); GFR AFRICAN AMERICAN 63 ML/MIN (>=60); GFR NON AFRICAN AMERICAN 54 ML/MIN (>=60); GLUCOSE, SERUM 334 MG/DL (60-99); POTASSIUM, SERUM 4.6 MMOL/L (3.5-5.3); SODIUM, SERUM 138 MMOL/L (135-148)
[2017-03-04 05:47] LABS: BUN (BLOOD UREA NITROGEN) 19 MG/DL (6-23); CALCIUM, SERUM 8.6 MG/DL (8.5-10.4); CHLORIDE, SERUM 109 MMOL/L (96-112); CO2 (CARBON DIOXIDE) 20 MMOL/L (24-34); CREATININE 1.34 MG/DL (0.55-1.02); GFR AFRICAN AMERICAN 51 ML/MIN (>=60); GFR NON AFRICAN AMERICAN 44 ML/MIN (>=60); POTASSIUM, SERUM 4.4 MMOL/L (3.5-5.3); SODIUM, SERUM 140 MMOL/L (135-148)
[2017-03-04 05:48] LABS: GLUCOSE, SERUM 358 MG/DL (60-99)
[2017-03-05 06:00] LABS: BUN (BLOOD UREA NITROGEN) 20 MG/DL (6-23); CALCIUM, SERUM 8.6 MG/DL (8.5-10.4); CHLORIDE, SERUM 113 MMOL/L (96-112); CO2 (CARBON DIOXIDE) 19 MMOL/L (24-34); CREATININE 0.98 MG/DL (0.55-1.02); GFR AFRICAN AMERICAN 74 ML/MIN (>=60); GFR NON AFRICAN AMERICAN 64 ML/MIN (>=60); POTASSIUM, SERUM 4.9 MMOL/L (3.5-5.3); SODIUM, SERUM 143 MMOL/L (135-148)
[2017-03-05 06:01] LABS: GLUCOSE, SERUM 234 MG/DL (60-99)
[2017-03-05] MEDS ORDERED: NORV10 PO (14:56)
[2017-03-05] MEDS ORDERED: NOVOLOG SC ×2 (14:59→15:04)
[2017-03-05] MEDS ORDERED: PRIN10 PO (15:05)
[2017-03-05] MEDS ORDERED: LOP50 PO (15:08)
[2017-03-05] MEDS ORDERED: MACROBID PO (15:09)
[2017-03-05] MEDS ORDERED: MIRALAX POWDER1 PKT PO (15:10)
[2017-03-05] MEDS ORDERED: LEVEMIR SC (15:11)
[2017-03-05] MEDS ORDERED: PROVHFA INH (15:13)
[2017-03-05] MEDS ORDERED: QVAR80 MCG INH (15:14)
[2017-05-01] MEDS ORDERED: *UNABLE1 (23:32)
[2017-05-02] MEDS ORDERED: HUMALOG SC (11:02)
[2017-05-02] MEDS ORDERED: PRIN10 PO (11:02)
[2017-05-02] MEDS ORDERED: LEVEMIR SC (11:02)
[2017-05-02] MEDS ORDERED: PROVHFA INH (11:03)
[2017-05-02] MEDS ORDERED: MEVACOR10 MG PO (11:03)
[2017-05-02] MEDS ORDERED: QVAR80 MCG INH (11:03)
[2017-05-02] MEDS ORDERED: NEUR400 PO (11:03)
[2017-05-02] MEDS ORDERED: LOP50 PO (11:04)
[2017-05-02] MEDS ORDERED: ANASPAZ0.125 MG PO (11:04)
[2017-05-02] MEDS ORDERED: NORV10 PO (11:04)
[2017-05-02] MEDS ORDERED: PRILOSEC40 MG PO (11:04)
[2017-05-03] MEDS ORDERED: NORV10 PO (15:07)
[2017-05-03] MEDS ORDERED: QVAR80 MCG INH (15:11)
[2017-05-03] MEDS ORDERED: PRIN10 PO (15:12)
[2017-05-03] MEDS ORDERED: PROVHFA INH (15:12)
[2017-05-03] MEDS ORDERED: MEVACOR10 MG PO (15:12)
[2017-05-03] MEDS ORDERED: LOP50 PO (15:13)
[2017-05-03] MEDS ORDERED: NEUR400 PO (15:13)
[2017-05-03] MEDS ORDERED: LEVSINTAB PO (15:14)
[2017-05-03] MEDS ORDERED: PRILOSEC40 MG PO (15:14)
[2017-05-03] MEDS ORDERED: HUMALOG SC ×2 (15:15→15:16)
[2017-05-03] MEDS ORDERED: LEVEMIR SC (15:15)
[2017-05-04] MEDS ORDERED: HALF81 PO (10:14)
[2017-05-04] MEDS ORDERED: PRIN20 PO (10:15)
[2017-05-04] MEDS ORDERED: NOVOLOG SC (10:15)
[2017-05-04] MEDS ORDERED: LOP25 PO (10:16)
[2017-05-04] MEDS ORDERED: CREON PO (10:27)
[2017-05-04] MEDS ORDERED: LEVEMIR SC (10:33)
[2017-05-04] MEDS ORDERED: HABIT14 TOP (10:33)
[2017-05-04] MEDS ORDERED: NORCO1 TA1 PO (14:29)
[2017-06-25] MEDS ORDERED: LEVEMFLXPN SC (16:41)
[2017-06-25] MEDS ORDERED: LEVEMIR SC (16:42)
[2017-06-25] MEDS ORDERED: Z300 PO (16:43)
[2017-06-25] MEDS ORDERED: HUMALOG SC (16:43)
[2017-06-25] MEDS ORDERED: PRILOSEC40 MG PO (16:45)
[2017-06-25] MEDS ORDERED: CREON PO (16:46)
[2017-06-25] MEDS ORDERED: LOP25 PO (16:46)
[2017-06-25] MEDS ORDERED: PRIN20 PO (16:46)
[2017-06-25] MEDS ORDERED: NEUR400 PO (16:47)
[2017-06-25] MEDS ORDERED: PROVHFA INH (16:47)
[2017-06-25] MEDS ORDERED: ASAB PO (16:48)
[2017-06-25] MEDS ORDERED: QVAR80 MCG INH (16:48)
[2017-06-25] MEDS ORDERED: MAXIMUM D3 PO (16:50)
[2017-06-25] MEDS ORDERED: VITAMIN D PO (16:50)
== END 2017-03-05 17:19 | disposition home or self-care (01) | DRG 637 ==
LOC: ER 11:10 → CDU1 14:14 → CDU2 14:37 → 4SO 03-01 10:36
PROVIDERS: Emergency Medicine; Hospitalist; Internal Medicine; Nurse Practitioner Family; Student in an Organized Health Care Education/Training Program
DX: E11.65 Type 2 diabetes mellitus with hyperglycemia (principal); K85.90 Acute pancreatitis without necrosis or infection, unspecified; N17.9 Acute kidney failure, unspecified; K31.84 Gastroparesis; Z68.42 Body mass index [BMI] 45.0-49.9, adult; E11.649 Type 2 diabetes mellitus with hypoglycemia without coma; E11.22 Type 2 diabetes mellitus with diabetic chronic kidney disease; E11.43 Type 2 diabetes mellitus with diabetic autonomic (poly)neuropathy; E66.01 Morbid (severe) obesity due to excess calories; N39.0 Urinary tract infection, site not specified; N18.2 Chronic kidney disease, stage 2 (mild); Z59.0 Homelessness; I12.9 Hypertensive chronic kidney disease with stage 1 through stage 4 chronic kidney disease, or unspecified chronic kidney disease; Z79.4 Long term (current) use of insulin; F17.200 Nicotine dependence, unspecified, uncomplicated; F14.21 Cocaine dependence, in remission; Z88.8 Allergy status to other drugs, medicaments and biological substances; T38.3X6A Underdosing of insulin and oral hypoglycemic [antidiabetic] drugs, initial encounter; Z91.120 Patient's intentional underdosing of medication regimen due to financial hardship; B37.3 Candidiasis of vulva and vagina; B96.20 Unspecified Escherichia coli [E. coli] as the cause of diseases classified elsewhere; R35.0 Frequency of micturition
CPT/HCPCS: 71010; 74176; 80048; 80053; 80061; 80305; 81001; 82248; 82570; 82962; 83036; 83690; 83735; 83935; 84300; 84443; 85025; 87077; 87086; 87186; 93005; 94640; 96374; 96375; 96376; 99285; A9270-GY; C9113; J0360; J1170; J2405; J2765